=== PATIENT | male | born 1975 | race Caucasian/White ===

== ENCOUNTER 2021-04-27 15:43 | Emergency (ER) | payer OTHER ==
[~2021-04-27] VITALS: Ht 188 cm; Wt 110.0 kg
[2021-04-27] MEDS ORDERED: MAALOX/HYOSCYAMINE/LIDOCAINE 45 ML BTL PO ONE (16:30)
[2021-04-27] MEDS ORDERED: MAALOX/HYOSCYAMINE/LIDOCAINE 45 ML BTL ONE (16:47)
[2021-04-27 16:57] LABS: BASOPHILS % (AUTO) 1 % (0-1); EOSINOPHILS % (AUTO) 3 % (1-7); LYMPHOCYTES % (AUTO) 22 % (22-44); MEAN CORPUSCULAR HEMOGLOBIN 27.1 pg (27.5-34.5); MEAN CORPUSCULAR HGB CONC 34.2 g/dL (33.2-36.2); MEAN PLATELET VOLUME 9.3 fL (7.4-10.4); MONOCYTES % (AUTO) 10 % (2-9); NEUTROPHILS % (AUTO) 65 % (42-75); PLATELET COUNT 236 x10^3/uL (130-400); RED BLOOD COUNT 5.83 x10^6/uL (4.38-5.82); RED CELL DISTRIBUTION WIDTH 13.4 % (9.4-14.8)
[2021-04-27 17:02] LABS: MD NO
[2021-04-27 17:03] LABS: ALANINE AMINOTRANSFERASE 27 U/L (12-78); ALBUMIN 3.7 g/dL (3.4-5.0); ANION GAP 4 mmol/L (5-15); CALCIUM 8.9 mg/dL (8.5-10.1); CHLORIDE 110 mmol/L (98-107); CREATININE 0.89 mg/dL (0.7-1.3)
[2021-04-27 17:07] LABS: ALKALINE PHOSPHATASE 56 U/L (45-117); BILIRUBIN,TOTAL 0.7 mg/dL (0.2-1.0); TOTAL PROTEIN 6.8 g/dL (6.4-8.2); TROPONIN I < 0.015 ng/mL (0.000-0.045)
[2021-04-27 17:41] VITALS: BP 168/103
--- NOTE | 2021-04-27 19:05 | NUR ---
RECEIVED REPORT FROM AFSHIN EVANGELISTA. PT RESTING COMFORTABLY ON BED, DISCHARGE INSTRUCTIONS GIVEN TO PT, VERBALIZED UNDERSTATING. PT AMBULATED OUT WITHOUT ANY S/S OF DISTRESS
== END 2021-04-27 19:08 | disposition home or self-care (01) ==
LOC: ED 17:30
DX: R10.13 Epigastric pain (principal); R11.2 Nausea with vomiting, unspecified; R19.7 Diarrhea, unspecified
CPT/HCPCS: 36415; 71045; 76700; 80053; 83690; 84484; 85025; 93005; 99285